=== PATIENT | male | born 1995 | race Caucasian/White ===

== ENCOUNTER 2023-12-20 22:47 | Day surgery (SDC) | payer OTHER ==
[~2023-12-20] VITALS: Ht 182.9 cm; Wt 131.8 kg
[2023-12-20 23:35] LABS: BASO # 0.1 10^3/uL (0.0-0.2); BASO % 0.3 % (0.0-1.0); EOS # 0.2 10^3/uL (0.0-0.5); EOS % 1.1 % (0.0-3.0); HEMATOCRIT 45.1 % (42.0-52.0); HEMOGLOBIN 15.6 g/dl (13.5-17.5); LYMPH # 1.4 10^3/uL (1.5-5.0); LYMPH % 8.2 % (24.0-44.0); MEAN CORPUSCULAR HGB CONC 34.6 g/dl (32.0-36.5); MEAN CORPUSCULAR VOLUME 89.5 fl (80.0-96.0); MONO # 1.2 10^3/uL (0.0-0.8); MONO % 7.1 % (2.0-8.0); NEUTROPHILS # 13.7 10^3/uL (1.5-8.5); NEUTROPHILS % 82.9 % (36.0-66.0); PLATELET COUNT, AUTOMATED 212 10^3/uL (150-450); RED BLOOD COUNT 5.04 10^6/uL (4.30-6.10); WHITE BLOOD COUNT 16.6 10^3/uL (4.0-10.0)
[2023-12-21] VITALS (8 sets, daily range): BP systolic 126–158; BP diastolic 78–94; TEMP 96.6–97.5; O2SAT 68–97
[2023-12-21 00:01] LABS: LIPASE 31 U/L (12-53)
[2023-12-21 00:04] LABS: ALBUMIN 4.2 G/DL (3.2-5.2); ALKALINE PHOSPHATASE 95 U/L (46-116); ALT/SGPT 120 U/L (7.0-40); AST/SGOT 79 U/L (<34); BILIRUBIN,DIRECT 0.4 MG/DL (<0.4); BILIRUBIN,TOTAL 1.6 MG/DL (0.3-1.2); BLOOD UREA NITROGEN 14 MG/DL (9-23); CALCIUM LEVEL 9.5 MG/DL (8.5-10.1); CARBON DIOXIDE LEVEL 25 MMOL/L (20-31); CHLORIDE LEVEL 102 MMOL/L (98-107); CREATININE FOR GFR 0.69 MG/DL (0.70-1.30); GLOMERULAR FILTRATION RATE > 60.0 (>60); GLUCOSE, FASTING 124 MG/DL (60-100); SODIUM LEVEL 135 MMOL/L (136-145); TOTAL PROTEIN 7.8 G/DL (5.7-8.2)
[2023-12-21 00:33] LABS: APPEARANCE, URINE CLEAR (CLEAR); BACTERIA, URINE AUTO NEGATIVE (NEGATIVE); BILIRUBIN, URINE AUTO NEGATIVE (NEGATIVE); BLOOD, URINE BLOOD NEGATIVE (NEGATIVE); COLOR, URINE YELLOW (YELLOW); GLUCOSE, URINE (UA) AUTO NEGATIVE (NEGATIVE); KETONE, URINE AUTO TRACE mg/dL (NEGATIVE); LEUKOCYTE ESTERASE, URINE AUTO NEGATIVE (NEGATIVE); MUCUS, URINE SMALL (NEGATIVE); NITRITE, URINE AUTO NEGATIVE (NEGATIVE); PROTEIN, URINE AUTO 1+ mg/dL (NEGATIVE); RBC, URINE AUTO 1 /HPF (0-3); SQUAMOUS EPITHELIAL CELL UR AU 0 /HPF (0-6); WBC, URINE AUTO 1 /HPF (0-3)
[2023-12-21] MEDS: NS 1,000 ML IV ONE (02:30)
[2023-12-21] MEDS: KETOROLAC 30 MG/ML 1ML VIAL IV ONE (02:30)
[2023-12-21] MEDS: ONDANSETRON 4MG 2ML VIAL IV ONE (02:30)
[2023-12-21] MEDS ORDERED: ISOVUE-370 76% 100ML VIAL As Ordered ONE (02:35)
[2023-12-21 03:05] LABS: ETHYL ALCOHOL (ETHANOL) 0.005 % (0.000-0.010)
[2023-12-21] MEDS: MORPHINE 4 MG/ML 1ML VIAL IV PRN (04:12)
[2023-12-21] MEDS ORDERED: HYDR12.55 PO (08:04)
[2023-12-21] MEDS ORDERED: HOME MED LIST COMPLETE! XX SCH (08:05)
[2023-12-21] MEDS: PIPERACILLIN/TAZOBACTAM SOD 3.375 GM in D5W MINI-BAG PLUS 50 ML IV ONE (08:11)
[2023-12-21] MEDS: NS 1,000 ML IV SCH ×2 (08:11→14:08)
[2023-12-21] MEDS ORDERED: fentaNYL 250 MCG/5 ML INJECTION As Ordered ONE (10:17)
[2023-12-21] MEDS ORDERED: propofoL 200 MG/20 ML VIAL As Ordered ONE (10:18)
[2023-12-21] MEDS ORDERED: ROCURONIUM BROMIDE 50MG/5ML VIAL As Ordered ONE (10:18)
[2023-12-21] MEDS ORDERED: MIDAZOLAM INJ 2MG/2ML VIAL As Ordered ONE (10:18)
[2023-12-21] MEDS ORDERED: LIDOCAINE 2% 100MG/5ML SDV (FOR ANES.) As Ordered ONE (10:18)
[2023-12-21] MEDS ORDERED: KETOROLAC 60MG 2ML VIAL As Ordered ONE (10:29)
[2023-12-21] MEDS ORDERED: SUGAMMADEX SODIUM 500 MG/5 ML VIAL (BRIDION) As Ordered ONE (10:30)
[2023-12-21] MEDS ORDERED: ONDANSETRON 4MG 2ML VIAL IV PRN (13:10)
[2023-12-21] MEDS ORDERED: NORCO, ANEXSIA 5/325MG TABLET (HYDROcodone/ACETAMINOPHEN) PO PRN (13:10)
[2023-12-21] MEDS: PIPERACILLIN/TAZOBACTAM SOD 3.375 GM in D5W MINI-BAG PLUS 50 ML IV SCH (14:08)
[2023-12-21] MEDS: hydroCHLOROthiazide 12.5 MG CAPSULE PO ONE (15:47)
[2023-12-21] MEDS: SENOKOT S TAB PO SCH (21:00)
[2023-12-21] MEDS: NORCO, ANEXSIA 5/325MG TABLET (HYDROcodone/ACETAMINOPHEN) PO PRN (21:05)
[2023-12-21] MEDS: PANTOPRAZOLE 40MG VIAL IV SCH (21:06)
[2023-12-22 03:00] VITALS: BP 137/81; TEMP 97.2; O2SAT 96
[2023-12-22 06:21] LABS: HEMATOCRIT 41.4 % (42.0-52.0); HEMOGLOBIN 13.8 g/dl (13.5-17.5); MEAN CORPUSCULAR HEMOGLOBIN 30.7 pg (27.0-33.0); MEAN CORPUSCULAR HGB CONC 33.3 g/dl (32.0-36.5); MEAN CORPUSCULAR VOLUME 92.2 fl (80.0-96.0); PLATELET COUNT, AUTOMATED 193 10^3/uL (150-450); RED BLOOD COUNT 4.49 10^6/uL (4.30-6.10); WHITE BLOOD COUNT 17.2 10^3/uL (4.0-10.0)
[2023-12-22 06:47] VITALS: BP 148/89; TEMP 97.5; O2SAT 98
[2023-12-22] MEDS: KETOROLAC 30 MG/ML 1ML VIAL IV PRN (08:09)
[2023-12-22] MEDS: hydroCHLOROthiazide 12.5 MG CAPSULE PO SCH (08:09)
[2023-12-22] MEDS ORDERED: AUGM500T34 PO (09:22)
[2023-12-22] MEDS ORDERED: HYDR-3715 PO (09:22)
== END 2023-12-22 10:26 | disposition home or self-care (01) ==
LOC: M ED 22:47 → M SDC 22:48 → M ED 12-21 11:26 → M SDC 12-21 13:10 → M MSPAV 12-21 14:02 → M SDC 12-22 10:26
PROVIDERS: ATTEND Surgery
DX: K35.32 Acute appendicitis with perforation, localized peritonitis, and gangrene, without abscess (principal); I10 Essential (primary) hypertension; Z79.899 Other long term (current) drug therapy
CPT/HCPCS: 36415; 44970; 80048; 80076; 81001; 82077; 83690; 85025; 85027; 88304; 96361; 96365; 96366; 96375; 96376; 99285; C9113; J1100; J1885; J2250; J2405; J2543; J3010; Q9967

== ENCOUNTER 2024-07-11 05:27 | Emergency (ER) | payer OTHER ==
[~2024-07-11] VITALS: Ht 182.9 cm; Wt 138.6 kg
[~2024-07-11 05:27] MED LIST: AUGM500T34 PO; HYDR-3715 PO; HYDR12.55 PO
[2024-07-11 11:07] LABS: BASO % 0.6 % (0.0-1.0); EOS # 0.4 10^3/uL (0.0-0.5); EOS % 5.5 % (0.0-3.0); HEMATOCRIT 41.7 % (42.0-52.0); HEMOGLOBIN 14.3 g/dl (13.5-17.5); LYMPH # 2.5 10^3/uL (1.5-5.0); LYMPH % 35.2 % (24.0-44.0); MEAN CORPUSCULAR HEMOGLOBIN 31.5 pg (27.0-33.0); MEAN CORPUSCULAR HGB CONC 34.3 g/dl (32.0-36.5); MEAN CORPUSCULAR VOLUME 91.9 fl (80.0-96.0); MONO # 0.6 10^3/uL (0.0-0.8); MONO % 8.1 % (2.0-8.0); NEUTROPHILS # 3.5 10^3/uL (1.5-8.5); NEUTROPHILS % 50.3 % (36.0-66.0); PLATELET COUNT, AUTOMATED 224 10^3/uL (150-450); RED BLOOD COUNT 4.54 10^6/uL (4.30-6.10)
[2024-07-11 11:50] LABS: BLOOD UREA NITROGEN 14 MG/DL (9-23); CALCIUM LEVEL 9.1 MG/DL (8.5-10.1); CARBON DIOXIDE LEVEL 29 MMOL/L (20-31); CHLORIDE LEVEL 103 MMOL/L (98-107); CK-MB VALUE MASS < 1.0 NG/ML (<3.6); GLOMERULAR FILTRATION RATE > 60.0 (>60); GLUCOSE, FASTING 110 MG/DL (60-100); POTASSIUM SERUM 4.3 MMOL/L (3.5-5.1); SODIUM LEVEL 139 MMOL/L (136-145)
[2024-07-11 12:00] LABS: CPK CREATINE PHOSPHOKINASE 212 U/L (46-171); MB/CK RELATIVE INDEX 0.47 (< OR =4)
[2024-07-11] MEDS ORDERED: HOLTER MONITOR XX (13:02)
[2024-07-11 13:11] VITALS: BP 147/99; TEMP 97.5; O2SAT 98
== END 2024-07-11 13:17 | disposition home or self-care (01) ==
LOC: M ED 05:27
DX: R00.2 Palpitations (principal); I10 Essential (primary) hypertension; Z90.89 Acquired absence of other organs; Z87.891 Personal history of nicotine dependence; Z79.899 Other long term (current) drug therapy